=== PATIENT | female | born 1970 ===

== ENCOUNTER 2021-04-28 08:21 | Outpatient (REF) | payer OTHER, SELFPAY ==
[2021-04-28 11:37] LABS: MANUAL DIFF FLAG NO
[2021-04-28 11:51] LABS: Basophils Percent Auto 0.7 % (0-2); Eosinophils Absolute Auto 0.2 X10*3/uL (0.0-0.4); Eosinophils Percent Auto 3.4 % (0-4); Hemoglobin 12.3 g/dl (12.0-16.0); Imm Gran Abs Auto 0.01 X10*3/uL (0.00-0.03); Imm Gran Pct Auto 0.2 % (0.0-0.4); Lymphocytes Percent Auto 50.5 % (20-40); Mean Corpuscular HGB Conc 31.5 g/dl (31.0-35.0); Mean Corpuscular Hemoglobin 28.8 pg (27.0-33.0); Mean Corpuscular Volume 91.3 fL (80-98); Mean Platelet Volume 11.7 fL (9.4-12.3); Monocytes Absolute Auto 0.6 X10*3/uL (0.1-1.2); Monocytes Percent Auto 9.2 % (2-11); Neutrophils Absolute Auto 2.2 X10*3/uL (2.0-8.3); Platelet Count 258 X10*3/uL (160-400); Red Blood Count 4.27 X10*6/uL (4.20-5.50); Red Cell Distribution Width 13.1 % (11.0-16.0)
[2021-04-28 12:17] LABS: Alanine Aminotransferase 14 U/L (0-31); Albumin Level 3.9 g/dL (3.5-5.0); Alkaline Phosphatase 73 U/L (39-117); Anion Gap 10 (12-20); Aspartate Amino Transferase 17 U/L (5-31); Bilirubin Total 0.4 mg/dL (0.0-1.0); Blood Urea Nitrogen 13 mg/dL (9-16); Calcium 9.2 mg/dL (8.4-10.2); Carbon Dioxide 28 mmol/L (22-29); Chloride 106 mmol/L (96-108); Cholesterol 195 mg/dL; Estimated Glomerular Filt Rate > 60; Glucose Fasting 104 mg/dL (60-99); HDL Cholesterol 69 mg/dL; LDL Cholesterol Calculated 117 mg/dl; Potassium 4.5 mmol/L (3.3-5.1); Sodium 139 mmol/L (135-145); Total Protein 6.9 g/dL (6.5-8.0); Triglycerides 47 mg/dL
[2021-04-28 12:23] LABS: TSH reflex Free T4 5.24 uIU/mL (0.32-4.0)
[2021-04-28 13:29] LABS: Free T4 (Free Thyroxine) 0.84 ng/dL (0.71-1.85)
== END 2021-04-28 08:22 | disposition home or self-care (01) ==
LOC: HO.WFDLDS 08:21
PROVIDERS: Visit Provider Family Medicine
DX: Z00.00 Encounter for general adult medical examination without abnormal findings (principal)
CPT/HCPCS: 36415; 80053; 80061; 84439; 84443; 85025

== ENCOUNTER 2021-06-02 08:36 | Outpatient (REF) | payer OTHER, SELFPAY ==
[2021-06-02 11:49] LABS: Estimated Average Glucose 120 mg/dL; Hemoglobin A1c % 5.8 %
[2021-06-02 11:57] LABS: Anion Gap 9 (12-20); Blood Urea Nitrogen 15 mg/dL (9-16); Calcium 8.8 mg/dL (8.4-10.2); Carbon Dioxide 26 mmol/L (22-29); Chloride 106 mmol/L (96-108); Estimated Glomerular Filt Rate > 60; Glucose Fasting 95 mg/dL (60-99); Potassium 4.3 mmol/L (3.3-5.1); Sodium 137 mmol/L (135-145)
[2021-06-02 12:20] LABS: Free T4 (Free Thyroxine) 0.75 ng/dL (0.71-1.85); Thyroid Stimulating Hormone 3.59 uIU/mL (0.32-4.0)
[2021-06-04 20:41] LABS: Triiodothyronine T3 Total 99 ng/dL (76-181)
== END 2021-06-02 08:37 | disposition home or self-care (01) ==
LOC: HO.WFDLDS 08:36
PROVIDERS: Visit Provider Family Medicine
DX: E03.9 Hypothyroidism, unspecified (principal); R73.01 Impaired fasting glucose
CPT/HCPCS: 36415; 80048; 83036; 84439; 84443; 84480

== ENCOUNTER 2021-07-29 15:11 | Outpatient (REF) | payer OTHER, SELFPAY ==
[2021-07-29 16:46] LABS: Hematocrit 39.5 % (37.0-47.0); Hemoglobin 12.6 g/dl (12.0-16.0); Mean Corpuscular HGB Conc 31.9 g/dl (31.0-35.0); Mean Corpuscular Volume 90.8 fL (80.0-98.0); Mean Platelet Volume 11.8 fL (9.4-12.3); Platelet Count 231 X10*3/uL (160-400); Red Blood Count 4.35 X10*6/uL (4.20-5.50); Red Cell Distribution Width 13.3 % (11.0-16.0); White Blood Count 6.1 X10*3/uL (4.8-10.8)
[2021-07-29 17:27] LABS: HCG Quantitative < 2 mIU/mL; TSH reflex Free T4 1.64 uIU/mL (0.32-4.0)
[2021-07-30 02:53] LABS: CT PCR NOT DETECTED (Not Detect.); NG PCR NOT DETECTED (Not Detect.)
[2021-07-30 15:27] LABS: Follicle Stimulating Hormone 4.6 mIU/mL; Lutenizing Hormone 3.1 mIU/mL; Prolactin 5.6 ng/mL
[2021-08-04 05:11] LABS: HPV mRNA E6/E7 rflx Not Detected (Not Detected)
== END 2021-07-29 15:12 | disposition home or self-care (01) ==
LOC: HO.LAB 15:11
PROVIDERS: PCP Family Medicine; Visit Provider Obstetrics & Gynecology
DX: Z01.419 Encounter for gynecological examination (general) (routine) without abnormal findings (principal); N91.5 Oligomenorrhea, unspecified; N93.9 Abnormal uterine and vaginal bleeding, unspecified
CPT/HCPCS: 36415; 83001; 83002; 84146; 84443; 84702; 85027; 87491; 87591; 87624; 88142

== ENCOUNTER 2021-08-12 09:54 | Outpatient (REF) | payer OTHER, SELFPAY ==
--- NOTE | ~2021-08-12 | MM_ITS ---
EXAMINATION: MM SCREENING DIGITAL BREAST TOMOSYNTHESIS, BILATERAL CLINICAL INFORMATION: Screening. Asymptomatic. The lifetime risk of breast cancer based on the Tyrer-Cuzick Model is 8%. COMPARISON: Outside mammography: 09/07/2018, 04/24/2015 ([facility]) TECHNIQUE: Digital breast tomosynthesis is performed in both the craniocaudal and mediolateral oblique views along with computer-aided detection (CAD). Synthesized 2D images are generated from the tomosynthesis. Additional left MLO view is provided. FINDINGS: There are scattered areas of fibroglandular density (ACR BI-RADS breast composition Category b). There are no significant masses, abnormal calcifications, or other abnormalities. Breast tissue composition borders on heterogeneously dense. There is no developing density or interval architectural changes. No significant changes from prior outside studies. MM/MM tomosynthesis screening BI IMPRESSION: No mammographic evidence of malignancy. ASSESSMENT: BI-RADS 1: Negative RECOMMENDATION: Routine annual mammography screening. This patient's information was entered into a reminder system with a target due date for their next mammogram.
== END 2021-08-12 09:55 | disposition home or self-care (01) ==
LOC: HO.MAMMO 09:54
PROVIDERS: PCP Family Medicine; Visit Provider Family Medicine
DX: Z12.31 Encounter for screening mammogram for malignant neoplasm of breast (principal)
CPT/HCPCS: 77063; 77067

== ENCOUNTER 2021-08-19 12:47 | Outpatient (REF) | payer OTHER, SELFPAY ==
--- NOTE | ~2021-08-19 | US_ITS ---
EXAMINATION: US PELVIC AND TRANSVAGINAL CLINICAL INFORMATION: Abnormal uterine and vaginal bleeding. LMP 08/19/2021. Tubal ligation. COMPARISON: None TECHNIQUE: Ultrasound of the pelvis is performed using both transabdominal and transvaginal transducers along with Doppler. Transvaginal imaging is performed due to inadequate visualization transabdominally. FINDINGS: UTERUS: The uterus is anteverted and measures 7.8 x 3.5 x 6.4 cm. There are nabothian cysts. There appears to be trace fluid within the cervical canal. The double wall endometrial thickness is 0.3 mm. The uterus is smooth in contour and has normal myometrial echogenicity. There is a probable fundal fibroid measuring 0.8 x 0.7 x 1.0 cm. ADNEXA: Both ovaries are visualized. There is normal color flow to the adnexa. There is no ovarian torsion. There is no pelvic ascites or fluid collection. Right ovarian simple follicle measuring 1.1 cm in greatest dimension. Findings are not clinically significant and no follow-up imaging is recommended. Normal Doppler detectable vascular flow within the ovaries. RIGHT OVARY MEASURES 3.2 x 1.0 x 1.7 cm. The right ovarian volume is 2.9 mm. LEFT OVARY MEASURES 2.2 x 0.8 x 1.0 cm. The left ovarian volume is 0.9 mL. US/US pelvic and transvaginal IMPRESSION: Probable uterine fundal fibroid measuring up to 1.0 cm. Unremarkable endometrium without associated lesion. Trace fluid within the cervical canal. Sonographically unremarkable right and left ovary with normal Doppler detectable vascular flow.
== END 2021-08-19 12:48 | disposition home or self-care (01) ==
LOC: HO.US 12:47
PROVIDERS: PCP Family Medicine; Visit Provider Obstetrics & Gynecology
DX: N93.9 Abnormal uterine and vaginal bleeding, unspecified (principal); N91.5 Oligomenorrhea, unspecified
CPT/HCPCS: 76830; 76856

== ENCOUNTER → 2021-09-14 13:58 | Outpatient (BNVA) | payer OTHER, SELFPAY | PROVIDERS: PCP Family Medicine; Referring Provider Family Medicine; Visit Provider Physician Assistant | DX: Z01.818 Encounter for other preprocedural examination (principal) | CPT/HCPCS: 99202; 99212 ==

== ENCOUNTER 2021-09-23 13:57 | Outpatient (REF) | payer OTHER, SELFPAY | END 2021-09-23 13:58 | disposition home or self-care (01) | LOC: HO.LAB 13:57 | PROVIDERS: PCP Family Medicine; Visit Provider Obstetrics & Gynecology | DX: N91.5 Oligomenorrhea, unspecified (principal) | CPT/HCPCS: 58100; 88305 ==

== ENCOUNTER → 2021-10-07 11:28 | Outpatient (BNVA) | payer OTHER, SELFPAY | PROVIDERS: Visit Provider Obstetrics & Gynecology | DX: N91.5 Oligomenorrhea, unspecified (principal) | CPT/HCPCS: Q3014 ==

== ENCOUNTER 2022-07-04 11:23 | Outpatient (REF) | payer OTHER, SELFPAY ==
[2022-07-04 13:52] LABS: MANUAL DIFF FLAG NO
[2022-07-04 14:00] LABS: Basophils Absolute Auto 0.1 X10*3/uL (0.0-0.2); Basophils Percent Auto 0.9 % (0-2); Eosinophils Absolute Auto 0.3 X10*3/uL (0.0-0.4); Eosinophils Percent Auto 5.1 % (0-4); Hematocrit 40.5 % (37.0-47.0); Imm Gran Abs Auto 0.01 X10*3/uL (0.00-0.03); Imm Gran Pct Auto 0.2 % (0.0-0.4); Lymphocytes Absolute Auto 2.6 X10*3/uL (1.2-4.9); Lymphocytes Percent Auto 46.5 % (20-40); Mean Corpuscular HGB Conc 32.1 g/dl (31.0-35.0); Mean Corpuscular Hemoglobin 28.5 pg (27.0-33.0); Mean Corpuscular Volume 88.8 fL (80.0-98.0); Mean Platelet Volume 11.9 fL (9.4-12.3); Monocytes Absolute Auto 0.5 X10*3/uL (0.1-1.2); Monocytes Percent Auto 8.7 % (2-11); Neutrophils Absolute Auto 2.2 x10*3/uL (2.0-8.3); Neutrophils Percent Auto 38.6 % (45-73); Platelet Count 263 X10*3/uL (160-400); Red Blood Count 4.56 X10*6/uL (4.20-5.50); Red Cell Distribution Width 13.4 % (11.0-16.0); White Blood Count 5.7 X10*3/uL (4.8-10.8)
[2022-07-04 14:19] LABS: Alanine Aminotransferase 14 U/L (0-31); Alkaline Phosphatase 85 U/L (39-117); Anion Gap 11 (12-20); Aspartate Amino Transferase 18 U/L (5-31); Bilirubin Total 0.5 mg/dL (0.0-1.0); Blood Urea Nitrogen 13 mg/dL (9-16); Calcium 9.3 mg/dL (8.4-10.2); Carbon Dioxide 28 mmol/L (22-29); Chloride 106 mmol/L (96-108); Cholesterol 213 mg/dL; Estimated Glomerular Filt Rate > 60; Glucose Fasting 100 mg/dL (60-99); HDL Cholesterol 71 mg/dL; LDL Cholesterol Calculated 130 mg/dl; Potassium 5.2 mmol/L (3.3-5.1); Sodium 140 mmol/L (135-145); Triglycerides 64 mg/dL
[2022-07-06 05:16] LABS: HIV AB/AG Nonreactive (Nonreactive); HIV Num 1 0.08 S/CO (0.00-0.99)
== END 2022-07-04 11:24 | disposition home or self-care (01) ==
LOC: HO.WFDLDS 11:23
PROVIDERS: Visit Provider Family Medicine
DX: Z00.00 Encounter for general adult medical examination without abnormal findings (principal); Z11.3 Encounter for screening for infections with a predominantly sexual mode of transmission; Z11.4 Encounter for screening for human immunodeficiency virus [HIV]
CPT/HCPCS: 36415; 80053; 80061; 85025; 87389

== ENCOUNTER → 2022-08-04 14:46 | Outpatient (BNVA) | payer OTHER, SELFPAY | PROVIDERS: PCP Family Medicine; Visit Provider Obstetrics & Gynecology | DX: Z13.89 Encounter for screening for other disorder (principal) ==

== ENCOUNTER 2022-08-16 08:29 | Outpatient (REF) | payer OTHER, SELFPAY ==
--- NOTE | ~2022-08-16 | MM_ITS ---
EXAMINATION: MM SCREENING DIGITAL BREAST TOMOSYNTHESIS, BILATERAL CLINICAL INFORMATION: Screening. Asymptomatic. The lifetime risk of breast cancer based on the Tyrer-Cuzick Model is 8%. COMPARISON: Mammography: 08/12/2021; outside mammography 09/07/2018, 04/24/2015 ([facility]) TECHNIQUE: Digital breast tomosynthesis is performed in both the craniocaudal and mediolateral oblique views along with computer-aided detection (CAD). Synthesized 2D images are generated from the tomosynthesis. FINDINGS: There are scattered areas of fibroglandular density (ACR BI-RADS breast composition Category b). Breast tissue composition borders on heterogeneously dense. Parenchymal pattern is similar to prior studies. There are no significant masses, abnormal calcifications, or other abnormalities. MM/MM tomosynthesis screening BI IMPRESSION: No mammographic evidence of malignancy. ASSESSMENT: BI-RADS 1: Negative RECOMMENDATION: Routine annual mammography screening. This patient's information was entered into a reminder system with a target due date for their next mammogram.
== END 2022-08-16 08:30 | disposition home or self-care (01) ==
LOC: HO.MAMMO 08:29
PROVIDERS: PCP Family Medicine; Visit Provider Family Medicine
DX: Z12.31 Encounter for screening mammogram for malignant neoplasm of breast (principal)
CPT/HCPCS: 77063; 77067

== ENCOUNTER → 2022-08-30 09:56 | Outpatient (BNVA) | payer OTHER, SELFPAY | PROVIDERS: PCP Family Medicine; Visit Provider Physician Assistant | DX: Z01.818 Encounter for other preprocedural examination (principal); R12 Heartburn | CPT/HCPCS: 99212 ==

== ENCOUNTER 2022-09-02 14:04 | Outpatient (REF) | payer OTHER, SELFPAY ==
--- NOTE | ~2022-09-02 | US_ITS ---
EXAMINATION: US PELVIS CLINICAL INFORMATION: Leiomyoma of the uterus. LMP July 2022, patient is unsure of exact dates. COMPARISON: Pelvic ultrasound 08/19/2021. TECHNIQUE: Ultrasound of the pelvis is performed using both transabdominal and transvaginal transducers along with Doppler. Transvaginal imaging is performed due to inadequate visualization transabdominally. FINDINGS: Uterus: The uterus is retroverted and retroflexed measuring 7.3 x 4.6 x 6.3 cm. The double wall endometrial thickness is 9 mm. The uterus is smooth in contour and has normal myometrial echogenicity. There is a 0.7 x 0.7 x 0.8 cm fundal intramural lesion, unchanged compared to 08/19/2021 that statistically is in favor to represent a fibroid. Nabothian cysts overlie the cervix. Adnexa: The left ovary was not visualized. The right ovary is normal in morphology with a 1.3 cm simple dominant follicular. Right ovary measures 2.9 x 1.4 x 1.5 cm. The right ovarian volume is 3.2 mL. No free fluid. US/US pelvic and transvaginal IMPRESSION: 1. Redemonstration of a stable 0.8 cm intramural lesion in the uterine fundus which statistically is in favor to represent a fibroid. 2. The endometrium measures 9 mm in thickness which is within normal limits for a premenopausal patient but considered abnormal for a postmenopausal patient. Please correlate with menstrual history. 3. Otherwise, normal examination with the caveat that the left ovary was not visualized.
== END 2022-09-02 14:05 | disposition home or self-care (01) ==
LOC: HO.US 14:04
PROVIDERS: Visit Provider Obstetrics & Gynecology
DX: D25.9 Leiomyoma of uterus, unspecified (principal)
CPT/HCPCS: 76830; 76856

== ENCOUNTER → 2022-09-07 11:13 | Outpatient (BNVA) | payer OTHER, SELFPAY | PROVIDERS: PCP Family Medicine; Visit Provider Obstetrics & Gynecology | DX: D25.9 Leiomyoma of uterus, unspecified (principal) | CPT/HCPCS: 99212 ==

== ENCOUNTER 2022-09-09 07:58 | Outpatient (REF) | payer OTHER, SELFPAY ==
[2022-09-09 11:51] LABS: Appearance Urine Turbid; Color Urine Yellow; Glucose Urine UA Negative (Negative); Leukocyte Esterase Urine Moderate (2+) (Negative); Nitrite Urine Negative (Negative); Specific Gravity - Urine >= 1.030 (1.005-1.025); UMIC TRIGGER UA YES; Urine Blood Moderate (2+) (Negative); Urine Ketones Negative (Negative); Urine Protein Negative (Neg-Trace)
[2022-09-09 11:52] LABS: Estimated Average Glucose 117 mg/dL; Hemoglobin A1c % 5.7 %
[2022-09-09 11:58] LABS: Anion Gap 14 (12-20); Blood Urea Nitrogen 13 mg/dL (9-16); Calcium 9.5 mg/dL (8.4-10.2); Carbon Dioxide 26 mmol/L (22-29); Chloride 105 mmol/L (96-108); Estimated Glomerular Filt Rate > 60; Glucose Fasting 100 mg/dL (60-99); Potassium 4.4 mmol/L (3.3-5.1); Sodium 141 mmol/L (135-145)
[2022-09-09 12:04] LABS: Bacteria Urine 1+ (None Seen); RBC Urine 0-2 /HPF (0-2)
[2022-09-09 12:22] LABS: HBS Num1 0.04 mIU/mL (0-7.99); HBc Num1 0.19 S/CO (0.00-0.79); HBsAGNum1 0.41 S/CO (0.00-0.99); Hepatitis B Core Antibody Nonreactive (Nonreactive); Hepatitis B Surface Antigen Negative (Negative); ~HepC Num1 0.82 S/CO (0.00-0.79); ~Hepatitis B Surface Antibody NONREACTIVE (Nonreactive)
[2022-09-09 12:24] LABS: Syphilis Screen Nonreactive (Nonreactive)
[2022-09-09 13:55] LABS: CT PCR NOT DETECTED (Not Detect.); NG PCR NOT DETECTED (Not Detect.)
[2022-09-09 14:30] LABS: ~HepC Num2 0.84; ~HepC Num3 0.79; ~Hepatitis C Antibody GRAYZONE (Nonreactive)
== END 2022-09-09 07:59 | disposition home or self-care (01) ==
LOC: HO.WFDLDS 07:58
PROVIDERS: Visit Provider Family Medicine
DX: Z11.3 Encounter for screening for infections with a predominantly sexual mode of transmission (principal); R73.01 Impaired fasting glucose; E87.5 Hyperkalemia
CPT/HCPCS: 0353U; 36415; 80048; 81001; 83036; 86704; 86706; 86780; 86803; 87340

== ENCOUNTER 2023-01-25 11:45 | Outpatient (AMB) | payer OTHER, SELFPAY ==
[2023-01-25 11:54] VITALS: BP 120/68; PULSE 70; O2SAT 99; BMI 31.0
--- NOTE | 2023-01-25 11:54 | MHC.PC.OV ---
Vital Signs 01/25/23 11:54 Height 5 ft 3 in Weight 175 lb 2 oz BMI 31.0 BP 120/68 Blood Pressure Location Lt brachial Position Sitting Pulse 70 Pulse Source Pulse Oximeter Pulse Oximetry (%) 99 Oxygen Delivery Method Room Air Intake Visit Reasons: f/u prediabetes Intake Note: Patient is here for follow up on prediabetes. Patient is not taking meds at the present time. Allergies No Known Allergies Allergy (Verified 01/25/23 11:55) Medication List - Last Reconciled 01/25/23 by Bunny Pickard MD bisacodyl (Dulcolax (bisacodyl)) 10 mg (2 x 5 mg) PO ONCE 1 day bisacodyl (Dulcolax (bisacodyl)) 10 mg (2 x 5 mg) PO ONCE 1 day fluticasone propionate 50 mcg/actuation (Flonase Allergy Relief) 1 spray intranasal Q12H 30 days ketotifen fumarate 0.025%(0.035%) ([place]away) 1 drp ophthalmic (eye) Q12H PRN 30 days methylcellulose (laxative) (Citrucel) 500 mg PO BID omeprazole 20 mg PO DAILY polyethylene glycol 3350 (Miralax) 238 grams PO ONCE 1 day polyethylene glycol 3350 (Miralax) 238 grams PO ONCE 1 day trazodone 50 mg PO BEDTIME PRN Tobacco use date assessed: 01/25/23 Dental Screening Dental Screen Date: 01/25/23 Did you have a dental visit in the last 12 months?: No Did you have a dental problem in the last 6 months where you did not have access to dental care?: No Was dental information given to patient?: No HPI f/u prediabetes HPI Details 52 y/o female presents to f/u pre-diabetes. A1c today 01/25/23 is 5.7%. 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 1. Little interest or pleasure in doing things: not at all 2. Feeling down, depressed, or hopeless: not at all 3. Trouble falling or staying asleep, or sleeping too much: not at all 4. Feeling tired or having little energy: not at all 5. Poor appetite or overeating: not at all 6. Feeling bad about yourself - or that you are a failure or have let yourself or your family down: not at all 7. Trouble concentrating on things, such as reading the newspaper or watching television: not at all 8. Moving or speaking so slowly that other people could have noticed. Or the opposite - being so fidgety or restless that you have been moving around a lot more than usual: not at all 9. Thoughts that you would be better off or of hurting yourself in some way: not at all Total score: 0 Depression Screening Interpretation: Negative Source: Developed by Drs. Paul Canas, Dell Adames and colleagues, with an educational arley from [employer]. Thrive Questionnaire Date Thrive assessed: 07/28/22 AUDIT C Alcohol Use Questionnaire (AUDIT-C) 1. How often do you have a drink containing alcohol?: 2-4 times a month 2. How many drinks containing alcohol do you have on a typical day when you are drinking?: 1 or 2 3. How often do you have six or more drinks on one occasion?: Never Total Score: 2 KARLA-7 AMB Questionnaire KARLA-7 Date KARLA - 7 assessed: 07/28/22 Source: Developed by Drs. Paul Canas, Blessing Dhillon, Dell Stallworth and colleagues, with an educational arley from [employer]. Review of Systems Const Denies chills, Denies fatigue, Denies fever(s), Denies headache(s) and Denies weakness ENT Denies dizziness and Denies headache(s) Card Denies dyspnea Resp Denies cough, Denies dyspnea, Denies wheezing and Denies other (shortness of breath) Musc Denies numbness and Denies tingling Neuro Denies dizziness, Denies headache(s), Denies numbness, Denies tingling and Denies weakness Psych Denies anxiety and Denies depression Endo Denies fatigue Aller/Immun Denies wheezing Physical exam (Primary Care) Vital Signs: Last Vital Signs Pulse 70 01/25/23 11:54 BP 120/68 01/25/23 11:54 Pulse Ox 99 01/25/23 11:54 Oxygen Delivery Method Room Air 01/25/23 11:54 BMI result Body Mass Index 31.0 Tobacco/Smoking Status: Tobacco use Status Tobacco use date assessed 01/25/23 01/25/23 11:57 Patient Tobacco Use Status Never used Tobacco 01/25/23 11:57 e-Cigarette/Vaping Use Never Used 01/25/23 11:57 PHQ-9: PHQ-9 Score PHQ-9: Total score 0 01/25/23 12:09 Depression Screening Interpretation: Negative Thrive Assessment: Date of Thrive Assessment Date Thrive assessed 07/28/22 01/25/23 11:57 Const General: well developed; No acute distress Nutritional Appearance: well nourished Orientation/consciousness: patient oriented x3 HENMT Head: Yes normocephalic and Yes atraumatic Eyes General: appearance normal, both eyes and all related structures Pupils: Equal, round and reactive pupils present EOM: EOMs intact bilaterally Resp Effort & Inspection: normal respiratory effort Auscultation: clear to auscultation bilaterally Cardio Rate: regular rate Rhythm: regular rhythm Heart sounds: S1 normal heart sound present, S2 normal heart sound present, no gallops, no murmurs and no rubs Neuro General: patient oriented x3 and gait normal Cranial nerves: Yes Equal, round and reactive pupils present Psych Affect: normal affect Results AMB Hemoglobin A1c AMB Hemoglobin A1c 5.7 % Last Edit by Coco Garcia CMA on 01/25/23 12:11 Results Reviewed Results Reviewed: Laboratory Last Values Hgb A1c (Clinic) 5.7 % (4.0-6.0) 01/25/23 12:06 Assessment and Plan Assessment & Plan (1) Prediabetes: Code(s): R73.03 - Prediabetes Plan: A1c mildly improved from 5.8% to 5.7% which remains in pre diabetes range Encouraged diet low in sugars and starches She gained a little weight and I encouraged weight loss and exercise Orders: Orders AMB Hemoglobin A1c Today Z13.9 - Encounter for screening, unspecified Coding Level of Care Code Est Pt Level 3 (22846) Diagnoses Prediabetes R73.03
== END 2023-01-25 12:20 | disposition home or self-care (01) ==
PROVIDERS: Visit Provider Family Medicine
DX: R73.03 Prediabetes (principal); Z13.9 Encounter for screening, unspecified
CPT/HCPCS: 83036; 99213

== ENCOUNTER 2023-03-01 11:06 | Day surgery (SDC) | payer OTHER, SELFPAY ==
[2023-02-27 15:14] VITALS: BMI 31.0
--- NOTE | 2023-02-28 10:50 | P.CONAN_ITS ---
Documented by User: Fariha Gonzalez NP 02/28/23 10:50 HPI - Anesthesia Eval Consult details Narrative: 52yo F for Upper Endoscopy and Colonoscopy PMFSH Active Problems Active Problems: All Active Problems (Updated 02/27/23 @ 15:13 by Dorita Samuels RN) Laboratory exam ordered as part of routine general medical examination (Acute) Insomnia (Acute) Screening for cervical cancer (Acute) Menopause (Acute) Elevated fasting blood sugar (Acute) Abnormal thyroid blood test (Acute) Adult general medical exam (Acute) Pruritus (Acute) Prediabetes (Acute) Left elbow tendonitis (Acute) Breast cancer screening by mammogram (Acute) Well woman exam (Acute) Oligomenorrhea (Acute) Encounter for screening colonoscopy (Acute) Dyspepsia (Acute) Heartburn (Acute) Elevated LDL cholesterol level (Acute) Hyperkalemia (Acute) Uterine myoma (Acute) Asymptomatic bacteriuria (Acute) Allergies (Acute) Past Medical History Medical History Allergies Dyspepsia Pre-diabetes Family History Family History Father COPD (chronic obstructive pulmonary disease) Asthma Thyroid condition Mother High cholesterol High blood pressure Brother Parkinsons disease Surgical History Surgical History History of tubal ligation Social History Social History Household Members: Spouse Housing: Apartment Alcohol intake: current Alcohol intake frequency: does not drink Patient Tobacco Use Status: Never used Tobacco e-Cigarette/Vaping Use: Never Used service: No Current occupational status: employed 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 Sexual orientation: Straight/Heterosexual Gender identity: Female Cognitive needs: No Hearing needs: No Vision needs: No Meds Allergies Allergy/AdvReac Type Severity Reaction Status Date / Time No Known Allergies Allergy Verified 01/25/23 11:55 Home Medications Medication Instructions Recorded Confirmed Last Taken Type trazodone 50 mg tablet 50 mg PO BEDTIME PRN 09/14/21 01/25/23 Unknown History Exam Exam Date and Time: February 28, 2023 1050 Height,Weight and Vital Signs: Height 5 ft 3 in Weight 79.379 kg Assessment and Plan Assessment Anesthesia Assessment: Chart Reviewed Documented by User: Emily Arce MD 03/01/23 14:19 PMFSH Active Problems Active Problems: All Active Problems (Updated 03/01/23 @ 11:50 by Emily Arce MD) Laboratory exam ordered as part of routine general medical examination (Acute) Insomnia (Acute) Screening for cervical cancer (Acute) Menopause (Acute) Elevated fasting blood sugar (Acute) Abnormal thyroid blood test (Acute) Adult general medical exam (Acute) Pruritus (Acute) Prediabetes (Acute) Left elbow tendonitis (Acute) Breast cancer screening by mammogram (Acute) Well woman exam (Acute) Oligomenorrhea (Acute) Encounter for screening colonoscopy (Acute) Dyspepsia (Acute) Heartburn (Acute) Elevated LDL cholesterol level (Acute) Hyperkalemia (Acute) Uterine myoma (Acute) Asymptomatic bacteriuria (Acute) H/o Environmental Allergies. Used to receive injections Past Medical History Medical History Allergies Dyspepsia Pre-diabetes Family History Family History Father COPD (chronic obstructive pulmonary disease) Asthma Thyroid condition Mother High cholesterol High blood pressure Brother Parkinsons disease Family history of problems with anesthesia: No Surgical History Surgical History History of tubal ligation History of Problems with Anesthesia: No Social History Social History Household Members: Spouse Housing: Apartment Alcohol intake: current Alcohol intake frequency: does not drink Patient Tobacco Use Status: Never used Tobacco e-Cigarette/Vaping Use: Never Used service: No Current occupational status: employed 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 Sexual orientation: Straight/Heterosexual Gender identity: Female Cognitive needs: No Hearing needs: No Vision needs: No Meds Allergies Allergy/AdvReac Type Severity Reaction Status Date / Time No Known Allergies Allergy Verified 01/25/23 11:55 Home Medications Medication Instructions Recorded Confirmed Last Taken Type trazodone 50 mg tablet 50 mg PO BEDTIME PRN 09/14/21 01/25/23 Unknown History Exam Height,Weight and Vital Signs: Height 5 ft 3 in Weight 79.379 kg Vital Signs Temp Pulse Resp BP Pulse Ox O2 Del Method 03/01/23 11:28 97 F 87 20 116/69 98 Room Air Pertinent Lab Results Pertinent Lab Results: Lab Results 03/01/23 Range/Units 11:27 Urine Test NEGATIVE (NEGATIVE) Airway Mallampati Class: I TM Dist: >3cm Neck ROM: Full Loose/Missing/Broken Teeth: Yes (Missing 3 molars, 1 broken molar. No loose teeth) Heart: RRR Lungs: CTAB Assessment and Plan Assessment Anesthesia Assessment: Anesthesia Plan Discussed Final Anesthetic Review Family History of Problems with Anesthesia: No History of Problems with Anesthesia: No NPO: Yes ASA Class: II Final Preanesthetic Review: No Changes in Pt Med Stat, Meds/Allgs Chart Reviewed, Consent Obtained/Reviewed and Anes Risks/Benef Reviewed Patient Risk: Low Procedure Risk: Low Assessment/Block/Sedation in SS: Assess/Block/Sedation-SS Anesthetic Plan Anesthetic Plan: MAC: Disposition: Standard PACU
[2023-03-01 11:28] VITALS: BP 116/69; PULSE 87; RESP 20; TEMP 36.1; O2SAT 98
[2023-03-01] MEDS: Lactated Ringers 1,000 ML 100 ML IVCONT (11:40)
[2023-03-01 11:43] LABS: UPreg QC Valid YES; Urine Pregnancy NEGATIVE (NEGATIVE)
--- NOTE | 2023-03-01 12:46 | MHC.SHP ---
Pre-Procedural Eval Section A Date of Service: 03/01/23 Section B Chief Complaint: Heartburn,Screening Relevant Family History (Specify if Yes): No Relevant Social History: None Present Medications: see Short Stay Collaborative assessment Medical History: Significant History (Allergies Dyspepsia Pre-diabetes) History of Previous Operations: Relevant previous surgery/procedure and date(s) (tubal ligation ) Allergies: Allergies Allergy/AdvReac Type Severity Reaction Status Date / Time No Known Allergies Allergy Verified 01/25/23 11:55 Review of Systems Sugical H&P ROS: Negative: Constitution, Cardiovascular, Respiratory, Neurological, Psychiatric, Hem-Onc, Allergic/Immunologic, Gastrointestinal, Genitourinary, Musculoskeletal, Integumentary, Endocrine and Eyes/Ears/Nose/Throat Exam Surgical H&P Exam: Normal: HEENT, Normal: Heart, Normal: Lungs, Normal: Extremities, Normal: Abdomen, Normal: Skin and Normal: Neurological Plan Diagnosis/Plan: Unchanged I have reviewed the history and physical and performed a pertinent physical examination on my patient. No changes have occurred unless specified. Time Spent With Patient Time: Total time managing care of this patient today ____ minutes.
--- NOTE | 2023-03-01 12:47 | W.PM.OPN ---
Operative Note Operative Note Date of Service: 03/01/23 Narrative: Operative Information Procedure Description: EGD, Colonoscopy Indication: GERD, screening Anesthesia: MAC FLEXIBLE TRANSORAL UPPER GASTROINTESTINAL ENDOSCOPY AND COLONOSCOPY PROCEDURE NOTE UPPER ENDOSCOPY Consent: Indications for the procedure and potential complications of bleeding, perforation, reaction to medications and missed diagnosis were discussed with the patient and informed consent was obtained. Instrument: Olympus GIF H 190 J mid size upper endoscope Monitoring: Vital signs and clinical assessment, continuous EKG monitoring, Pulse oximetry, Carbon Dioxide monitoring and blood pressure monitoring were done throughout the procedure. Procedure: The patient was placed in the left lateral decubitis position and pre-procedure medications were administered and a bite block was placed. The endoscope was inserted into the mouth and advanced under direct vision to the third part of duodenum. A careful inspection was made as the upper endoscope was withdrawn including a retroflexed examination of the proximal stomach; Findings and interventions are described below. Findings: Larynx:normal Esophagus: GE junction at 40 cm, diaphragm hiatus at 40 cm, mild erythematous mucosa--bx taken from GEJ, distal and proximal esophagus Stomach: Patchy erythematous mucosa. Biopsies were obtained. Grade 2 flap valve on retroflexed examination of the cardia. Duodenum: Normal bulb and descending duodenum, Intervention: Biopsies as noted above COLONOSCOPY Instrument: Olympus variable stiffness pediatric scope 190L Colonoscopy Monitoring: Vital signs and clinical assessment, continuous EKG monitoring, Pulse oximetry, Carbon Dioxide monitoring and blood pressure monitoring were done throughout the procedure. Colon withdrawal time was 8 minutes. Procedure: The patient was placed in the left lateral decubitis position and pre-procedure medications were administered. After a digital rectal examination of the ano-rectum, the video colonoscope was inserted into the rectum and advanced through the colon to the cecum/TI. The colonoscope was slowly withdrawn in a retrograde panoramic fashion and the colon mucosa was carefully examined including a retroflexed view of the rectum. Findings and interventions are described below. Procedure Difficulty:difficult due to tortuous colon Findings: Terminal Ileum-not intubated Cecum:normal Right sided retroflexion--normal Ascending Colon: normal Transverse Colon -normal Descending Colon:normal Sigmoid Colon: normal Rectum: Retroflexion with small internal hemorrhoids, grade I Anorectum - normal Colon preparation: [place] Bowel Preparation Scale Right colon; 2 Transverse colon: 3 Left colon; 3 (0 = Unprepared colon segment with mucosa not seen due to solid stool that cannot be cleared. 1 = Portion of mucosa of the colon segment seen, but other areas of the colon segment not well seen due to staining, residual stool and/or opaque liquid. 2 = Minor amount of residual staining, small fragments of stool and/or opaque liquid, but mucosa of colon segment seen well. 3 = Entire mucosa of colon segment seen well with no residual staining, small fragments of stool or opaque liquid) Impression and Post Procedure Diagnosis: Endoscopy Findings: mild gastritis Colonoscopy Findings: tortuous colon small hemorrhoids Plan: Await Pathology results Repeat Colonoscopy in 10 years or earlier if clinically indicated High fiber diet leaflet avoid straining at stool, epsom salts and sitz bath, anusol supps or cream Above findings were reviewed with the patient and relevant handouts were provided if indicated.
[2023-03-01 13:51] VITALS: BP 91/63; PULSE 67; RESP 14; TEMP 36.6; O2SAT 100
[2023-03-01 14:06] VITALS: BP 99/69; PULSE 73; RESP 21; TEMP 37; O2SAT 100
== END 2023-03-01 14:58 | disposition home or self-care (01) ==
PROVIDERS: Anesthesiology; PCP Internal Medicine Geriatric Medicine; Visit Provider Internal Medicine Gastroenterology
PROC: (CPT 45378; principal; 2023-03-01 12:50)
DX: Z12.11 Encounter for screening for malignant neoplasm of colon (principal); K64.0 First degree hemorrhoids; K21.9 Gastro-esophageal reflux disease without esophagitis; K29.50 Unspecified chronic gastritis without bleeding; Q43.8 Other specified congenital malformations of intestine; K44.9 Diaphragmatic hernia without obstruction or gangrene; R10.13 Epigastric pain; E11.40 Type 2 diabetes mellitus with diabetic neuropathy, unspecified; Z79.51 Long term (current) use of inhaled steroids; Z79.899 Other long term (current) drug therapy; Z91.09 Other allergy status, other than to drugs and biological substances
CPT/HCPCS: 45378; 43239; 81025; 88305; 88342

== ENCOUNTER → 2023-03-01 11:06 | Outpatient (BNV) | payer OTHER, SELFPAY | PROVIDERS: PCP Internal Medicine Geriatric Medicine; Visit Provider Internal Medicine Gastroenterology | DX: Z12.11 Encounter for screening for malignant neoplasm of colon (principal); K21.00 Gastro-esophageal reflux disease with esophagitis, without bleeding | CPT/HCPCS: 43239; 45378 ==

== ENCOUNTER 2023-03-14 08:59 | Outpatient (AMB) | payer OTHER, SELFPAY ==
--- NOTE | 2023-03-14 09:01 | A.OFFVIS_ITS ---
Intake Vital Signs 03/14/23 09:09 Height 5 ft 3 in Weight 170 lb BMI 30.1 BP 92/54 L Blood Pressure Location Lt brachial Position Sitting Pulse 68 Intake Visit Reasons: S/p egd/colon-[place] Intake Note: Patient follow up for Colonoscopy/EGD results. Patient denies any other GI issues. [place] Folder Required: No Accompanied by: Self / Same As Patient Allergies No Known Allergies Allergy (Verified 03/14/23 09:01) Medication List - Last Reconciled 03/14/23 by Alyson Santos PA-C omeprazole 20 mg PO DAILY trazodone 50 mg PO BEDTIME PRN HPI HPI Comments History of Present Illness Details A 52 y/o female f/u after EGD and colonoscopy Reviewed procedure report, pathology as well as recommendation Continue ppi-nausea, fairly good response-however waterbrash when eats late. No nausea vomiting, hematemesis, hematochezia fever chills PFSH Medical History (Updated 03/14/23 @ 09:24 by Alyson Santos PA-C) Allergies Dyspepsia Pre-diabetes Surgical History History of esophagogastroduodenoscopy (EGD) History of tubal ligation Hx of colonoscopy Family History Father COPD (chronic obstructive pulmonary disease) Asthma Thyroid condition Mother High cholesterol High blood pressure Brother Parkinsons disease Social History Household Members: Spouse Housing: Apartment Alcohol intake: current Alcohol intake frequency: does not drink Patient Tobacco Use Status: Never used Tobacco e-Cigarette/Vaping Use: Never Used service: No Current occupational status: employed 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 Sexual orientation: Straight/Heterosexual Gender identity: Female Cognitive needs: No Hearing needs: No Vision needs: No Female Reproductive History Menstrual Age of Menarche: 14 Review of Systems Const All systems reviewed & are unremarkable except as noted in HPI and below Card Denies chest pain and Denies dyspnea Resp Denies dyspnea GI Reports dyspepsia Physical Exam Vital Signs: Last Vital Signs Pulse 68 03/14/23 09:09 BP 92/54 L 03/14/23 09:09 BMI result Body Mass Index 30.1 Const General: cooperative, healthy appearing and comfortable Orientation/consciousness: patient oriented x3 Limitations: no limitations Resp Effort & Inspection: normal respiratory effort and able to speak in complete sentences Neuro General: patient oriented x3 Extrem General: Yes full ROM Results Reviewed Results Reviewed: indings: Terminal Ileum-not intubated Cecum:normal Right sided retroflexion--normal Ascending Colon: normal Transverse Colon -normal Descending Colon:normal Sigmoid Colon: normal Rectum: Retroflexion with small internal hemorrhoids, grade I Anorectum - normal Colon preparation: [place] Bowel Preparation Scale Right colon; 2 Transverse colon: 3 Left colon; 3 (0 = Unprepared colon segment with mucosa not seen due to solid stool that cannot be cleared. 1 = Portion of mucosa of the colon segment seen, but other areas of the colon segment not well seen due to staining, residual stool and/or opaque liquid. 2 = Minor amount of residual staining, small fragments of stool and/or opaque liquid, but mucosa of colon segment seen well. 3 = Entire mucosa of colon segment seen well with no residual staining, small fragments of stool or opaque liquid) Impression and Post Procedure Diagnosis: Endoscopy Findings: mild gastritis Colonoscopy Findings: tortuous colon small hemorrhoids Plan: Await Pathology results Repeat Colonoscopy in 10 years or earlier if clinically indicated High fiber diet leaflet avoid straining at stool, epsom salts and sitz bath, anusol supps or cream Above findings were reviewed with the patient and relevant handouts were provided if indicated. Name:Lynn Mckeon Age/Sex: 52/F Attending: Robert Keating MD : 1970 Submitted by: Robert Keating MD Copies to: Bethel Marie MD MR #: [id number] ? Status: [facility] Collected: 03/01/23 Location: [facility] Received: 03/01/23 Diagnosis A.? Stomach, biopsy:? Gastric antral and body mucosa with mild chronic inactive gastritis; negative for H pylori, intestinal metaplasia and dysplasia.? B.? Gastroesophageal junction, biopsy:? Squamous mucosa with hyperplasia, mild spongiosis, and intraepithelial eosinophils (up to 5 per high-power field) consistent with esophagitis, and scant columnar mucosa; negative for intestinal metaplasia and dysplasia. C.? Esophagus, distal, biopsy:? Squamous mucosa with no specific change; no columnar mucosa present. D.? Esophagus, proximal, biopsy:? Squamous mucosa with no specific change; no columnar mucosa present. Clinical History Pre-Op Dx:? Screening GERD Post-Op Dx: Mild gastritis, hemorrhoids, tortuous colon Microscopic Description Assessment & Plan Assessment & Plan (1) Esophagitis: Comment: omeprazole 20 ,g bid x 8weeks resume QD after Code(s): K20.90 - Esophagitis, unspecified without bleeding (2) Hemorrhoids: Code(s): K64.9 - Unspecified hemorrhoids Plan: High-fiber diet, avoid straining (3) Heartburn: Comment: Omeprazole 20 mg b.i.d. x8 weeks- Then omeprazole 20 mg daily Reviewed reflux precautions Code(s): R12 - Heartburn Plan: Reviewed precaution PPI as diary Medications: New omeprazole 20 mg PO BID 8 weeks 112 caps 0RF Patient Instructions: Repeat asymptomatic colonoscopy 10 Omeprazole 20 mg b.i.d. x8 weeks then 20 mg daily reviewed precautions Avoid eating 2-3 hours before reclining Encouraged to call questions or concerns Coding Level of Care Code Est Pt Level 3 (38236) Diagnoses Esophagitis K20.90 Hemorrhoids K64.9 Heartburn R12 Time Spent (min) 25
[2023-03-14 09:09] VITALS: BP 92/54; PULSE 68; BMI 30.1
== END 2023-03-14 10:33 | disposition home or self-care (01) ==
LOC: HO.HGIW 08:59
PROVIDERS: PCP Internal Medicine Geriatric Medicine; Visit Provider Physician Assistant
DX: K20.90 Esophagitis, unspecified without bleeding (principal); K64.9 Unspecified hemorrhoids; R12 Heartburn
CPT/HCPCS: 99213

== ENCOUNTER → 2023-03-14 08:59 | Outpatient (BNVA) | payer OTHER, SELFPAY | PROVIDERS: PCP Internal Medicine Geriatric Medicine; Visit Provider Physician Assistant ==

== ENCOUNTER 2023-08-18 08:36 | Outpatient (REF) | payer OTHER, SELFPAY | END 2023-08-18 08:37 | disposition home or self-care (01) | LOC: HO.MAMMO 08:36 | PROVIDERS: PCP Family Medicine; Visit Provider Family Medicine | DX: Z12.31 Encounter for screening mammogram for malignant neoplasm of breast (principal) | CPT/HCPCS: 77063; 77067 ==

== ENCOUNTER → 2023-08-18 08:45 | Outpatient (BNV) | payer OTHER, SELFPAY | PROVIDERS: PCP Family Medicine; Visit Provider Radiology Diagnostic Radiology | DX: Z12.31 Encounter for screening mammogram for malignant neoplasm of breast (principal) | CPT/HCPCS: 77063; 77067 ==

== ENCOUNTER 2023-09-13 14:01 | Outpatient (AMB) | payer OTHER, SELFPAY ==
[2023-09-13 14:11] VITALS: BP 98/58; BMI 30.6
--- NOTE | 2023-09-13 14:11 | A.OFFVIS_ITS ---
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 No complaints. Last Pap/HPV was negative in 08/07 Last Mammogram was BI-RADS 1 in 09/09 Last Colonoscopy was in 03/08, the recommendation was to repeat in 10 years [facility] Medical History Pre-diabetes Dyspepsia Allergies Surgical History History of esophagogastroduodenoscopy (EGD) Hx of colonoscopy History of tubal ligation Family History Father COPD (chronic obstructive pulmonary disease) Asthma Thyroid condition Mother High cholesterol High blood pressure Brother Parkinsons disease Social History Household Members: Spouse Housing: Apartment Alcohol intake: current Alcohol intake frequency: does not drink Patient Tobacco Use Status: Never used Tobacco e-Cigarette/Vaping Use: Never Used service: No Current occupational status: employed 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 Sexual orientation: Straight/Heterosexual Gender identity: Female Cognitive needs: No Hearing needs: No Vision needs: No Female Reproductive History Menstrual Age of Menarche: 14 Menopause type: natural Total pregnancies: 2 Full term: 2 Number of Living Children: 2 Date of last pap smear: 08/02/21 Date of Mammogram: 08/18/23 Review of Systems Const All systems reviewed & are unremarkable except as noted in HPI and below Card Reports as per HPI Resp Reports as per HPI GI Reports as per HPI and Reports no additional complaints Reports as per HPI Physical Exam Vital Signs: Last Vital Signs BP 98/58 L 09/13/23 14:11 BMI result Body Mass Index 30.6 Const General: cooperative, healthy appearing and comfortable Chest Chest palpation & inspection: normal inspection of the chest and normal palpation of entire chest wall Breast/axilla inspection: normal inspection of the breasts and normal inspection of the axillae Breast/axilla palpation: normal palpation of the breasts, normal palpation of the axillae and no axillary lymphadenopathy Resp Effort & Inspection: normal respiratory effort Auscultation: clear to auscultation bilaterally Percussion: percussion normal Cardio Palpation: normal PMI Rate: regular rate Rhythm: regular rhythm Heart sounds: no murmurs and no rubs Peripheral pulses: Peripheral pulses 2+ throughout GI Inspection: Yes normal to inspection Palpation (GI): Soft to palpation, nontender, no guarding, not rigid and No hepatosplenomegaly present Percussion: Yes normal to percussion Auscultation: normal bowel sounds Rectal Exam - Female: deferred General: Yes bladder normal to palpation External Female Exam: No lesion Speculum Exam - Vagina: normal appearance of the vagina, normal palpation, normal vaginal discharge and not erythematous Speculum Exam - Cervix: normal appearance of the cervix and normal palpation Bimanual exam- vagina & uterus: normal bimanual exam, normal palpation, uterine size normal, bladder normal to palpation, consistency normal and normal palpation Bimanual Exam- Adnexa, other: normal adnexae, no masses and no tenderness Assessment & Plan Assessment & Plan (1) Well woman exam: Code(s): Z01.419 - Encounter for gynecological examination (general) (routine) without abnormal findings Plan: Co testing not indicated this year. Counseled the patient about the recommended dietary allowance of 1200 mg of Calcium & 600 IU of vitamin D. Instructions given the patient to schedule next screening Mammogram in 09/10. The patient was instructed to perform monthly self-breast exams and schedule annual exam in a year. All questions answered and the patient verbalized understanding. Coding Level of Care Code Est Pt Prev Care 40-64y(50629) Diagnoses Well woman exam Z01.419
== END 2023-09-13 15:24 | disposition home or self-care (01) ==
LOC: HO.HWS 14:02
PROVIDERS: PCP Family Medicine; Visit Provider Obstetrics & Gynecology
DX: Z01.419 Encounter for gynecological examination (general) (routine) without abnormal findings (principal)
CPT/HCPCS: 99396

== ENCOUNTER → 2023-09-13 14:01 | Outpatient (BNVA) | payer OTHER, SELFPAY | PROVIDERS: PCP Family Medicine; Visit Provider Obstetrics & Gynecology ==

== ENCOUNTER 2023-10-24 08:33 | Outpatient (REF) | payer OTHER, SELFPAY ==
[2023-10-24 11:33] LABS: Appearance Urine Clear; Color Urine Yellow; Glucose Urine UA Negative (Negative); Leukocyte Esterase Urine Negative (Negative); Nitrite Urine Negative (Negative); PH 5.5 (5.0-9.0); Specific Gravity - Urine 1.025 (1.005-1.025); Urine Blood Negative (Negative); Urine Ketones Negative (Negative); Urine Protein Negative (Neg-Trace)
[2023-10-24 12:37] LABS: Alanine Aminotransferase 24 U/L (0-31); Albumin Level 3.8 g/dL (3.5-5.0); Alkaline Phosphatase 89 U/L (39-117); Anion Gap 9 (12-20); Aspartate Amino Transferase 21 U/L (5-31); Bilirubin Total 0.3 mg/dL (0.0-1.0); Blood Urea Nitrogen 17 mg/dL (9-16); Carbon Dioxide 28 mmol/L (22-29); Chloride 108 mmol/L (96-108); Cholesterol 204 mg/dL (<200); Estimated Glomerular Filt Rate > 60; Glucose Fasting 108 mg/dL (60-99); HDL Cholesterol 74 mg/dL (>40); LDL Cholesterol Calculated 122 mg/dL (<100); Potassium 4.4 mmol/L (3.3-5.1); Sodium 141 mmol/L (135-145); Total Protein 7.1 g/dL (6.5-8.0); Triglycerides 44 mg/dL (<150)
[2023-10-24 12:40] LABS: TSH reflex Free T4 2.28 uIU/mL (0.32-4.0)
[2023-10-24 12:50] LABS: Creatinine Urine 148.66 mg/dL; Microalbumin Urine < 5.0 mg/L
== END 2023-10-24 08:34 | disposition home or self-care (01) ==
LOC: HO.WFDLDS 08:33
PROVIDERS: Visit Provider Family Medicine
DX: Z00.00 Encounter for general adult medical examination without abnormal findings (principal); I10 Essential (primary) hypertension
CPT/HCPCS: 36415; 80053; 80061; 81003; 82043; 82570; 84443

== ENCOUNTER → 2023-10-25 15:53 | Outpatient (AMB) | payer OTHER, SELFPAY ==
[2023-10-25 15:57] VITALS: BP 108/58; PULSE 73; O2SAT 100; BMI 31.2
--- NOTE | 2023-10-25 15:57 | A.OFFPC_ITS ---
Vital Signs 10/25/23 15:57 Height 5 ft 3 in Weight 176 lb 4 oz BMI 31.2 BP 108/58 L Blood Pressure Location Lt brachial Position Sitting Pulse 73 Pulse Source Pulse Oximeter Pulse Oximetry (%) 100 Oxygen Delivery Method Room Air Intake Visit Reasons: CPE with f/u labs and health maintenance Intake Note: Patient is here for her physical today. She is concerned, hasn't gotten her period in four months. Patient would like referral for Rn Stars, very itchy with allergies. Allergies No Known Allergies Allergy (Verified 10/25/23 16:01) Medication List - Last Reconciled 10/25/23 by Bunny Pickard MD cetirizine (Zyrtec) 10 mg PO DAILY PRN omeprazole 20 mg PO DAILY trazodone 50 mg PO BEDTIME PRN Tobacco use date assessed: 10/25/23 Dental Screening Dental Screen Date: 10/25/23 Did you have a dental visit in the last 12 months?: No Did you have a dental problem in the last 6 months where you did not have access to dental care?: No Was dental information given to patient?: Patient declined HPI CPE with f/u labs and health maintenance HPI Details 53 y/o female presents for a CPE with f/ u labs and health maintenance. Labs were drawn 10/24/23. Reviewed labs with pt. Elevated fasting glucose of 108. A1c today 10/25/23 is 5.9%. Triglycerides 44. TC 204. LDL 122. HDL 74. She reports some GERD. [facility]LY [facility] Medical History Pre-diabetes Dyspepsia Allergies Surgical History History of esophagogastroduodenoscopy (EGD) Hx of colonoscopy History of tubal ligation Family History Father COPD (chronic obstructive pulmonary disease) Asthma Thyroid condition Mother High cholesterol High blood pressure Brother Parkinsons disease Social History Household Members: Spouse Housing: Apartment Alcohol intake: current Alcohol intake frequency: does not drink Patient Tobacco Use Status: Never used Tobacco e-Cigarette/Vaping Use: Never Used service: No Current occupational status: employed 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 1. Little interest or pleasure in doing things: not at all 2. Feeling down, depressed, or hopeless: not at all 3. Trouble falling or staying asleep, or sleeping too much: not at all 4. Feeling tired or having little energy: not at all 5. Poor appetite or overeating: not at all 6. Feeling bad about yourself - or that you are a failure or have let yourself or your family down: not at all 7. Trouble concentrating on things, such as reading the newspaper or watching television: not at all 8. Moving or speaking so slowly that other people could have noticed. Or the opposite - being so fidgety or restless that you have been moving around a lot more than usual: not at all 9. Thoughts that you would be better off or of hurting yourself in some way: not at all Total score: 0 Depression Screening Interpretation: Negative Depression Screening Done: Yes 04336 - PHQ-9 Billing: Yes Source: Developed by Drs. Paul Canas, Blessing Dhillon, Dell Stallworth and colleagues, with an educational arley from [employer] Thrive Questionnaire Date Thrive assessed: 07/28/22 I am a: Patient What is your living situation today?: I have a steady place to live Within the past 12 months, did the food you bought not last and you didn't have the money to get more?: Never true Within the past 12 months, did you worry whether your food would run out before you got money to buy more?: Never true Do you have trouble paying for medicines?: No Do you have trouble getting transportation to medical appointments?: No Do you have trouble paying your heating and electricity bill?: No Do you have trouble taking care of your child, family member or friend?: No Do you have trouble with day-to-day activities such as bathing, preparing meals, shopping, managing finances, etc.?: No Are you currently unemployed and looking for a job?: No Are you interested in more education?: No Please select the resources that you would like help with: None THRIVE Score: 0 AUDIT C Alcohol Use Questionnaire (AUDIT-C) 1. How often do you have a drink containing alcohol?: Monthly or less 2. How many drinks containing alcohol do you have on a typical day when you are drinking?: 1 or 2 3. How often do you have six or more drinks on one occasion?: Never Total Score: 1 KARLA-7 AMB Questionnaire KARLA-7 Date KARLA - 7 assessed: 10/25/23 Feeling nervous, anxious, or on edge: 0 = Not at all Not being able to stop or control worryin = Not at all Worrying too much about different things: 0 = Not at all Trouble relaxin = Not at all Being so restless that it is hard to sit still: 0 = Not at all Becoming easily annoyed or irritable: 0 = Not at all Feeling afraid as if something awful might happen: 0 = Not at all Total KARLA-7 score (0-4 normal; 5-9 mild; 10-14 moderate; 15-21 severe): 0 Source: Developed by Drs. Paul Canas, Blessing Dhillon, Dell Stallworth and colleagues, with an educational arley from [employer] KARLA-7 Assessment Billing KARLA-7 Assessment Tool: KARLA-7 Assessment 98366 Review of Systems Const Denies chills, Denies fatigue, Denies fever(s), Denies headache(s) and Denies weakness Eyes Denies change in vision ENT Denies dizziness, Denies headache(s), Denies hearing loss, Denies nasal congestion, Denies sinus pain, Denies sinus pressure and Denies sore throat Card Denies chest pain, Denies lightheadedness, Denies dyspnea and Denies other (palpitations) Resp Denies cough, Denies dyspnea and Denies wheezing GI Denies abdominal pain, Denies melena, Denies hematochezia, Denies change in bowel habits, Denies dyspepsia and Denies nausea Denies hematuria and Denies dysuria Musc Denies abnormal gait, Denies myalgias, Denies arthralgias, Denies numbness and Denies tingling Skin/Breast Denies rash, Denies unusual bruising and Denies wounds Neuro Denies abnormal gait, Denies dizziness, Denies headache(s), Denies memory loss, Denies numbness, Denies Sensory deficit (Neuro), Denies tingling and Denies weakness Psych Denies anxiety, Denies depression and Denies memory loss Endo Denies cold intolerance, Denies fatigue, Denies heat intolerance, Denies polydipsia and Denies polyuria Gavin/Lymph Denies easy bleeding and Denies easy bruising Aller/Immun Denies wheezing Physical exam (Primary Care) Vital Signs: Last Vital Signs Pulse 73 10/25/23 15:57 BP 108/58 L 10/25/23 15:57 Pulse Ox 100 10/25/23 15:57 Oxygen Delivery Method Room Air 10/25/23 15:57 BMI result Body Mass Index 31.2 Tobacco/Smoking Status: Tobacco use Status Tobacco use date assessed 10/25/23 10/25/23 16:09 Patient Tobacco Use Status Never used Tobacco 10/25/23 16:09 e-Cigarette/Vaping Use Never Used 10/25/23 16:09 PHQ-9: PHQ-9 Score PHQ-9: Total score 0 10/25/23 16:59 Depression Screening Interpretation: Negative Thrive Assessment: Date of Thrive Assessment Date Thrive assessed 07/28/22 10/25/23 16:09 Const General: no acute distress, well developed, alert and awake Nutritional Appearance: well nourished Orientation/consciousness: patient oriented x3 HENMT Head: Yes normocephalic and Yes atraumatic Ears: hearing grossly normal bilaterally and TM's normal bilaterally General nose exam: Normal external nose present and Normal nares present Mouth: Normal oral and palatal mucosa present and moist mucous membranes Teeth and gingiva: dentition normal Throat: Yes posterior oropharynx normal Eyes General: appearance normal, both eyes and all related structures Pupils: Equal, round and reactive pupils present and Pupil accommodation reflex normal EOM: EOMs intact bilaterally Neck Neck: Yes normal visual inspection, Yes no lymphadenopathy and Yes trachea midline Thyroid: Thyroid normal Carotids: no bruits Lymphatic: no lymphadenopathy noted Chest Chest palpation & inspection: normal inspection of the chest Resp Effort & Inspection: normal respiratory effort Auscultation: clear to auscultation bilaterally Cardio Rate: regular rate Rhythm: regular rhythm Heart sounds: S1 normal heart sound present, S2 normal heart sound present, no gallops, no murmurs and no rubs Bruits: no abdominal aortic bruits and no carotid bruits GI Palpation (GI): No Abdominal aortic bruit present, Soft to palpation, nontender, No hepatosplenomegaly present and No Rebound tenderness present Auscultation: normal bowel sounds General: Yes no CVA tenderness Back/Spine/Pelvis Back: no CVA tenderness Cervical Spine: cervical ROM normal and No Cervical spine tenderness Thoracic/Lumbar Spine: thoraco-lumbar ROM normal, No pain with thoraco-lumbar ROM, No thoracic spinal tenderness and No lumbar spinal tenderness Skin Lesions: no lesions Rashes: no rashes Trauma: no lacerations or abrasions Wounds: no wounds Nails: normal Neuro General: patient oriented x3 Cranial nerves: Yes Equal, round and reactive pupils present Cognition (Neuro): normal cognition Gait exam (Neuro): Normal gait present Motor exam (neuro): 5/5 motor strength present throughout Sensory Exam: No Sensory deficit (Neuro) Deep tendon reflexes (DTR's): Right patellar reflex intensity grade: 2+ and Left patellar reflex intensity grade: 2+ Extrem General: Yes normal to inspection and No edema Psych Appearance: grossly normal Affect: normal affect Attitude: cooperative Thought process: Normal thought process present Results AMB Hemoglobin A1c AMB Hemoglobin A1c 5.9 % Last Edit by Coco Garcia CMA on 10/25/23 17:12 Assessment and Plan Assessment & Plan (1) Adult general medical exam: Code(s): Z00.00 - Encounter for general adult medical examination without abnormal findings Plan: 53-year-old?female?presents?for?complete?physical?exam Encouraged?healthy?diet?with?active?lifestyle?and?plenty?of?exercise (2) GERD (gastroesophageal reflux disease): Code(s): K21.9 - Gastro-esophageal reflux disease without esophagitis Plan: Significant?GERD?symptoms. Endoscopy?showed?gastritis?and?esophagitis She?had?been?prescribed?omeprazole?but?was?unable?to?obtain?this.??I?have?recent ?the?script. Asked?her?to?let?me?know?if?sh e?is?unable?to?get?this?or?having?problems?with?the?medication. Follow-up?with?GI?as?recommended (3) Prediabetes: Code(s): R73.03 - Prediabetes Plan: A1c?climbed?from?5.7%?to?5.9% Encouraged?diet?lower?in?sugars?and?starches Encouraged?weight?control (4) Menopause: Code(s): Z78.0 - Asymptomatic menopausal state Plan: Significant?hot?flashes?and?has?not?had?her?period?in?month She?can?trial?clonidine?for?hot?flashes. Advised?caution?if?causing?any?dizziness?or?low?blood?pressures.??Hydrate?well She?can?take?1/2-1 tab?daily?as?needed She?can?discontinue?this?if?causing?adverse?effects?or?not?helping. (5) Breast cancer screening by mammogram: Code(s): Z12.31 - Encounter for screening mammogram for malignant neoplasm of breast Plan: Mammogram?was?negative?for?malignancy Continue?annual?screening (6) Screening for cervical cancer: Code(s): Z12.4 - Encounter for screening for malignant neoplasm of cervix Plan: Followed?by?[facility]?medical technician assistant? Up-to-date ?Continue?annual?screening?followed (7) Screening for colon cancer: Code(s): Z12.11 - Encounter for screening for malignant neoplasm of colon Plan: Had?colonoscopy?and?endoscopy?with?GI Follow-up?as?recommended Orders: Orders AMB Hemoglobin A1c Today Z13.9 - Encounter for screening, unspecified Medications: New clonidine HCl 0.1 mg PO DAILY 30 days PRN 12 tabs 1RF Flushing Changed From omeprazole 20 mg PO DAILY 30 caps 5RF To omeprazole 20 mg PO DAILY 90 days 90 caps 3RF Coding Level of Care Code Est Pt Level 3 (78840) Est Pt Prev Care 40-64y(45325) Diagnoses Adult general medical exam Z00.00 GERD (gastroesophageal reflux disease) K21.9 Prediabetes R73.03 Menopause Z78.0 Breast cancer screening by mammogram Z12.31 Screening for cervical cancer Z12.4 Screening for colon cancer Z12.11 Additional Codes KARLA-7 Assessment Billing - KARLA-7 Assessment Tool: KARLA-7 Assessment [id number] ([id number])
== END ==
PROVIDERS: PCP Internal Medicine Geriatric Medicine; Visit Provider Family Medicine
DX: Z00.00 Encounter for general adult medical examination without abnormal findings (principal); K21.9 Gastro-esophageal reflux disease without esophagitis; R73.03 Prediabetes; Z78.0 Asymptomatic menopausal state; Z12.31 Encounter for screening mammogram for malignant neoplasm of breast; Z12.11 Encounter for screening for malignant neoplasm of colon
CPT/HCPCS: 83036; 99213; 99396

== ENCOUNTER 2024-08-23 08:44 | Outpatient (REF) | payer OTHER, SELFPAY | END 2024-08-23 08:45 | disposition home or self-care (01) | LOC: HO.MAMMO 08:44 | PROVIDERS: PCP Family Medicine; Visit Provider Family Medicine | DX: Z12.31 Encounter for screening mammogram for malignant neoplasm of breast (principal) ==

== ENCOUNTER → 2024-08-23 08:45 | Outpatient (BNV) | payer OTHER, SELFPAY | PROVIDERS: PCP Family Medicine; Visit Provider Internal Medicine | DX: Z12.31 Encounter for screening mammogram for malignant neoplasm of breast (principal) | CPT/HCPCS: 77063; 77067 ==

== ENCOUNTER 2024-09-17 08:36 | Outpatient (AMB) | payer OTHER, SELFPAY ==
--- NOTE | 2024-09-17 08:37 | MHC.OFFVIS ---
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 No complaints. Last Pap/HPV was negative in 08/07 Last Mammogram was BI-RADS 1 in 09/10 Last colonoscopy was in 03/08 [facility] Medical History Pre-diabetes Dyspepsia Allergies Surgical History History of esophagogastroduodenoscopy (EGD) Hx of colonoscopy History of tubal ligation Family History Father COPD (chronic obstructive pulmonary disease) Asthma Thyroid condition Mother High cholesterol High blood pressure Brother Parkinsons disease Social History Household Members: Spouse Housing: Apartment Alcohol intake: current Alcohol intake frequency: does not drink Patient Tobacco Use Status: Never used Tobacco e-Cigarette/Vaping Use: Never Used service: No Current occupational status: employed 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 Sexual orientation: Straight/Heterosexual Gender identity: Female Cognitive needs: No Hearing needs: No Vision needs: No Female Reproductive History Menstrual Age of Menarche: 14 Total pregnancies: 2 Full term: 2 Date of last pap smear: 07/29/21 (negative pap smear, negative hpv) History of abnormal pap smear: No Date of Mammogram: 08/23/24 (bi rad 1) Review of Systems Const All systems reviewed & are unremarkable except as noted in HPI and below Card Reports as per HPI Resp Reports as per HPI GI Reports as per HPI and Reports no additional complaints Reports as per HPI Physical Exam Vital Signs: Last Vital Signs BP 112/70 09/17/24 08:43 BMI result Body Mass Index 31.2 Const General: cooperative, healthy appearing and comfortable Chest Chest palpation & inspection: normal inspection of the chest and normal palpation of entire chest wall Breast/axilla inspection: normal inspection of the breasts and normal inspection of the axillae Breast/axilla palpation: normal palpation of the breasts, normal palpation of the axillae and no axillary lymphadenopathy Resp Effort & Inspection: normal respiratory effort Auscultation: clear to auscultation bilaterally Percussion: percussion normal Cardio Palpation: normal PMI Rate: regular rate Rhythm: regular rhythm Heart sounds: no murmurs and no rubs Peripheral pulses: Peripheral pulses 2+ throughout GI Inspection: Yes normal to inspection Palpation (GI): Soft to palpation, nontender, no guarding, not rigid and No hepatosplenomegaly present Percussion: Yes normal to percussion Auscultation: normal bowel sounds Rectal Exam - Female: deferred General: Yes bladder normal to palpation External Female Exam: No lesion Speculum Exam - Vagina: normal appearance of the vagina, normal palpation, normal vaginal discharge and not erythematous Speculum Exam - Cervix: normal appearance of the cervix and normal palpation Bimanual exam- vagina & uterus: normal bimanual exam, normal palpation, uterine size normal, bladder normal to palpation, consistency normal and normal palpation Bimanual Exam- Adnexa, other: normal adnexae, no masses and no tenderness Assessment & Plan Assessment & Plan (1) Well woman exam: Code(s): Z01.419 - Encounter for gynecological examination (general) (routine) without abnormal findings Category: Medical Plan: Cotesting not indicated this year. Instructions given the patient to schedule next screening Mammogram in 09/11. Counseled the patient about the recommended dietary allowance of 1000 mg of Calcium & 600 IU of vitamin D. The patient was instructed to perform monthly self-breast exams and to schedule an annual exam in a year; All questions answered and the patient verbalized understanding. Instructed the patient to schedule annual exam in a year Coding Level of Care Code Est Pt Prev Care 40-64y(74722) Diagnoses Well woman exam Z01.419
[2024-09-17 08:43] VITALS: BP 112/70; BMI 31.2
== END 2024-09-17 09:07 | disposition home or self-care (01) ==
LOC: HO.HWS 08:36
PROVIDERS: PCP Family Medicine; Visit Provider Obstetrics & Gynecology
DX: Z01.419 Encounter for gynecological examination (general) (routine) without abnormal findings (principal)
CPT/HCPCS: 99396; 99459

== ENCOUNTER → 2024-09-17 08:36 | Outpatient (BNVA) | payer OTHER, SELFPAY | PROVIDERS: PCP Family Medicine; Visit Provider Obstetrics & Gynecology ==